=== PATIENT | female | born 1945 | race Caucasian/White ===

== ENCOUNTER → 2023-02-24 | Outpatient (CLI) | payer MEDICARE, OTHER | END | disposition home or self-care (01) | LOC: RAH 10:41 | PROVIDERS: ATTEND Student in an Organized Health Care Education/Training Program | DX: M19.011 Primary osteoarthritis, right shoulder (principal); M24.111 Other articular cartilage disorders, right shoulder; M25.411 Effusion, right shoulder | CPT/HCPCS: 73221 ==

== ENCOUNTER 2023-03-13 05:46 | Observation (INO) | payer MEDICARE ==
[2023-03-09 13:31] VITALS: BP 151/58; PULSE 63; RESP 16
[2023-03-09 13:33] LABS: APPEARANCE,URINE CLEAR (CLEAR); BILIRUBIN,URINE NEGATIVE (NEGATIVE); COLOR,URINE COLORLESS (YELLOW); GLUCOSE, URINE (UA) NEGATIVE (NEGATIVE); KETONES,URINE NEGATIVE (NEGATIVE); LEUKOCYTE ESTERASE ,URINE NEGATIVE Leu/uL (NEGATIVE); NITRATE,URINE NEGATIVE (NEGATIVE); OCCULT BLOOD,URINE NEGATIVE (NEGATIVE); PROTEIN,URINE NEGATIVE (NEGATIVE); UROBILINOGEN,URINE 0.2 mg/dL (0.2-1.0)
[2023-03-09 13:38] LABS: ADD UA MICROSCOPIC NO
[2023-03-09 13:49] LABS: ALBUMIN 3.8 g/dL (3.5-5.0)
[~2023-03-13] VITALS: Ht 165.1 cm; Wt 81.2 kg
[2023-03-13] VITALS (26 sets, daily range): BP systolic 142–170; BP diastolic 52–82; PULSE 59–91; RESP 10–20; O2SAT 92
[~2023-03-13 05:46] MED LIST: AMLO-257 PO; CELE100C PO; EZET10TA48 PO; FURO20TA4 PO; LEVO100C4 PO; LISI40TA9 PO; MELA1TAB73 PO; SEMA0.258 SQ
[2023-03-13] MEDS ORDERED: CEFAZOLIN SODIUM 2 GM VIAL ONE (06:28)
[2023-03-13] MEDS ORDERED: 0.9%NACL 1000ML 1,000 ML IV ONE (06:28)
[2023-03-13] MEDS ORDERED: TRAM50TA4 PO (06:44)
[2023-03-13] MEDS ORDERED: TYLENOL PO (06:44)
[2023-03-13] MEDS ORDERED: ONDANSETRON 4MG INJ ONE (06:49)
[2023-03-13] MEDS ORDERED: LIDOCAINE PF 100MG/5ML (2%) SYRINGE 5ML ONE (06:49)
[2023-03-13] MEDS ORDERED: PROPOFOL 10 MG/ML 20ML VIAL IV ONE (06:49)
[2023-03-13] MEDS ORDERED: ROCURONIUM 10MG/1ML SYR 10 MG/ML ML ONE ×2 (06:50→09:10)
[2023-03-13] MEDS ORDERED: MIDAZOLAM HCL 1 MG/ML 2ML VIAL ONE (06:50)
[2023-03-13] MEDS ORDERED: FENTANYL CITRATE PF 50 MCG/1 ML 2ML VIAL ONE (06:51)
[2023-03-13] MEDS ORDERED: DEXAMETHASONE SOD PHOSPHATE 10MG/ML 1ML VIAL ONE (06:56)
[2023-03-13] MEDS ORDERED: ROPIVACAINE 0.5% 5MG/ML 30ML ONE (06:56)
[2023-03-13] MEDS ORDERED: CEFAZOLIN SODIUM 2 GM VIAL IVPB ONE (07:32)
[2023-03-13] MEDS ORDERED: TRANEXAMIC ACID 1000MG/10ML ONE (07:42)
[2023-03-13] MEDS ORDERED: TRANEXAMIC ACID 1000MG/10ML IV ONE (07:54)
[2023-03-13] MEDS ORDERED: GLYCOPYRROLATE 1 MG/5 ML SYRINGE ONE (10:44)
[2023-03-13] MEDS ORDERED: NEOSTIGMINE 5MG/5ML SYR IV ONE (10:44)
[2023-03-13] MEDS ORDERED: POTASSIUM CHLORIDE 20MEQ/100ML 100 ML IV PRN (11:00)
[2023-03-13] MEDS ORDERED: POTASSIUM CHLORIDE 10% ELIXIR 20 MEQ/15 ML UDCUP PO PRN (11:00)
[2023-03-13] MEDS: KETOROLAC 15MG/ML VIAL (15MG/ML) IV SCH ×2 (11:00→22:55)
[2023-03-13] MEDS ORDERED: FE FUMARATE/FA/MV, MIN COMB#15 1 TAB PO PRN (11:00)
[2023-03-13] MEDS ORDERED: KCL 20 MEQ ERTAB PO PRN (11:00)
[2023-03-13] MEDS ORDERED: CYCLOBENZAPRINE HCL 10 MG TABLET PO PRN (11:00)
[2023-03-13] MEDS ORDERED: ONDANSETRON 4MG INJ IVP PRN (11:00)
[2023-03-13] MEDS: 0.9%NACL 1000ML 1,000 ML IV SCH ×2 (11:00→21:00)
[2023-03-13] MEDS ORDERED: CALCIUM CARB 500MG PO PRN (11:00)
[2023-03-13] MEDS ORDERED: TRAMADOL HCL 50 MG TABLET PO PRN (11:00)
[2023-03-13] MEDS ORDERED: KETOROLAC 15MG/ML VIAL (15MG/ML) ONE (11:45)
[2023-03-13] MEDS: GABAPENTIN 100 MG CAPSULE PO SCH ×2 (15:04→22:56)
[2023-03-13] MEDS: CEFAZOLIN SODIUM 2 GM VIAL IVPB SCH (15:05)
[2023-03-13] MEDS: HYDROCODONE/ACETAMINOPHEN 5/325 MG TAB PO PRN ×2 (15:05→22:54)
[2023-03-13] MEDS: DOCUSATE SODIUM 100 MG CAP PO SCH (22:56)
[2023-03-14] VITALS: BP 138/55; PULSE 96; RESP 19
[2023-03-14] MEDS ORDERED: CEFAZOLIN SODIUM 2 GM VIAL ONE (01:22)
[2023-03-14] MEDS: CEFAZOLIN SODIUM 2 GM VIAL IVPB SCH (01:24)
[2023-03-14 03:53] LABS: HEMATOCRIT 32.7 % (36-48); MEAN CORPUSCULAR HEMOGLOBIN 33.1 pg (27.0-33.0); MEAN CORPUSCULAR HGB CONC 34.9 g/dL (32.0-36.0); MEAN CORPUSCULAR VOLUME 95.1 fL (79-99); RED BLOOD CELL COUNT(AUTO) 3.44 MIL/uL (4.00-5.50); RED CELL DISTRIBUTION WIDTH 12.3 % (11.0-15.5); WHITE BLOOD COUNT (AUTO) 8.9 K/uL (4.8-10.8)
[2023-03-14 04:00] VITALS: BP 143/49; PULSE 84; RESP 19
[2023-03-14] MEDS ORDERED: KETOROLAC 15MG/ML VIAL (15MG/ML) ONE (04:02)
[2023-03-14] MEDS: KETOROLAC 15MG/ML VIAL (15MG/ML) IV SCH (04:06)
[2023-03-14 04:11] LABS: CREATININE 0.9 mg/dL (0.5-1.5); POTASSIUM 4.2 mmol/L (3.5-5.1)
[2023-03-14] MEDS: HYDROCODONE/ACETAMINOPHEN 5/325 MG TAB PO PRN ×2 (05:48→13:13)
[2023-03-14] MEDS: 0.9%NACL 1000ML 1,000 ML IV SCH (07:00)
[2023-03-14] MEDS ORDERED: LEVOTHYROXINE 100 MCG TABLET PO SCH (07:30)
[2023-03-14 08:00] VITALS: BP 151/64; PULSE 89; RESP 19
[2023-03-14] MEDS ORDERED: POLYETHYLENE GLYCOL 3350 17 GM POWD.PACK PO SCH (09:00)
[2023-03-14] MEDS: DOCUSATE SODIUM 100 MG CAP PO SCH (09:00)
[2023-03-14] MEDS ORDERED: FUROSEMIDE 20 MG TABLET PO SCH (09:00)
[2023-03-14] MEDS ORDERED: AMLODIPINE 5 MG TAB PO SCH (09:00)
[2023-03-14] MEDS ORDERED: CYCL-309 PO (09:44)
[2023-03-14] MEDS ORDERED: HYDR-4060 PO (09:44)
[2023-03-14] MEDS ORDERED: DOCU-116 PO (09:44)
[2023-03-14] MEDS ORDERED: GABA100C PO (09:44)
[2023-03-14] MEDS ORDERED: KETOROLAC 15MG/ML VIAL (15MG/ML) IV PRN ×2 (10:00→11:00)
[2023-03-14 11:36] VITALS: BP 144/55; PULSE 70; RESP 17
[2023-03-14] MEDS ORDERED: GABAPENTIN 100 MG CAPSULE PO SCH (14:00)
[2023-03-14] MEDS ORDERED: EZETIMIBE 10 MG TAB PO SCH (21:00)
[2023-03-14] MEDS ORDERED: LISINOPRIL 40 MG TABLET PO SCH (21:00)
[2023-03-14] MEDS ORDERED: (Melatonin/Pyridoxine HCl (B6) (Melatonin 10 mg Tablet) PO SCH (21:00)
[2023-03-16] MEDS ORDERED: BISACODYL 10 MG SUPP.RECT RC PRN (11:00)
== END 2023-03-14 15:45 | disposition home health service (06) ==
LOC: DAH 05:46 → DAHIP 05:47 → DAH 05:47 → 4BH 12:15
PROVIDERS: ADMIT Student in an Organized Health Care Education/Training Program; ATTEND Student in an Organized Health Care Education/Training Program
DX: M19.011 Primary osteoarthritis, right shoulder (principal); M24.111 Other articular cartilage disorders, right shoulder; G89.18 Other acute postprocedural pain; D62 Acute posthemorrhagic anemia; I10 Essential (primary) hypertension; E11.9 Type 2 diabetes mellitus without complications; E07.9 Disorder of thyroid, unspecified; E78.5 Hyperlipidemia, unspecified; Z79.899 Other long term (current) drug therapy
CPT/HCPCS: 82040; 87088; 84134; 86140; 81003; 36415 ×2; 87641; 96374; 96375; 73020; 64415; 23472; 82948 ×6; 73030; 97161; 97116 ×2; 97530 ×5; 96376; 80048; 85027; A6260; G0378 ×26; A4600; A4663; J7030 ×2; C1776; J3010; J3490 ×3; J1100; J2710; J2001; J2250; J2704; J2405; J2795; J1885 ×3; J0690 ×4; G0168; A6254; A4215; A4223; A4222; A4221